=== PATIENT | male | born 1960 | race Two or more races ===

== ENCOUNTER 2019-01-17 07:44 | Outpatient (CLI) | payer OTHER | END 2019-01-17 07:47 | disposition home or self-care (01) | LOC: TOM 07:44 | DX: C34.90 Malignant neoplasm of unspecified part of unspecified bronchus or lung (principal) ==

== ENCOUNTER 2019-01-24 08:49 | Outpatient (CLI) | payer OTHER | END 2019-01-24 12:12 | disposition home or self-care (01) | LOC: NUCLEAR 08:49 | DX: C34.90 Malignant neoplasm of unspecified part of unspecified bronchus or lung (principal) | CPT/HCPCS: 78816; A9552 ==

== ENCOUNTER 2019-07-22 08:26 | Outpatient (CLI) | payer OTHER | END 2019-07-22 11:26 | disposition home or self-care (01) | LOC: NUCLEAR 08:26 | DX: C34.92 Malignant neoplasm of unspecified part of left bronchus or lung (principal) | CPT/HCPCS: 78815; A9552 ==

== ENCOUNTER 2019-11-16 11:36 | Emergency (ER) | payer OTHER ==
[~2019-11-16] VITALS: Ht 172.7 cm; Wt 108.9 kg
[2019-11-16] MEDS ORDERED: ASPIR 8181 MG (12:24)
[2019-11-16] MEDS ORDERED: LANTUS SOL100 UNIT/1 (12:25)
[2019-11-16] MEDS ORDERED: FLOVENT HFA10.6 GM (12:44)
[2019-11-16] MEDS ORDERED: PROAIR HFA8.5 GM (12:45)
[2019-11-16] MEDS ORDERED: FOLIC ACID1 MG (12:46)
[2019-11-16] MEDS ORDERED: GRALISE600 MG (12:46)
[2019-11-16] MEDS ORDERED: HYDROCHLOROTH12.5 MG (12:47)
[2019-11-16] MEDS ORDERED: GLIPIZIDE XL10 MG (12:47)
[2019-11-16] MEDS ORDERED: ATORVASTATIN CA40 MG (12:47)
[2019-11-16] MEDS ORDERED: AMLODIPINE 10MG (12:48)
[2019-11-16] MEDS ORDERED: PLAVIX75 MG (12:48)
[2019-11-16] MEDS ORDERED: MONTELUKAST SODI4 M1 (12:49)
[2019-11-16] MEDS ORDERED: TOPROL XL25 M1 (12:49)
[2019-11-16] MEDS ORDERED: ANORO ELLIPTA1 EACH (12:50)
[2019-11-16] MEDS ORDERED: JENTADUETO XR1 EACH (12:51)
[2019-11-16] MEDS ORDERED: DICLOFENAC SODI75 MG PO (12:53)
== END 2019-11-16 14:04 | disposition home or self-care (01) ==
LOC: ER 11:36
DX: M25.532 Pain in left wrist (principal)

== ENCOUNTER 2019-11-22 12:24 | Emergency (ER) | payer OTHER ==
[~2019-11-22] VITALS: Ht 172.7 cm; Wt 108.9 kg
[~2019-11-22 12:24] MED LIST: AMLODIPINE 10MG; ANORO ELLIPTA1 EACH; ASPIR 8181 MG; ATORVASTATIN CA40 MG; DICLOFENAC SODI75 MG PO; FLOVENT HFA10.6 GM; FOLIC ACID1 MG; GLIPIZIDE XL10 MG; GRALISE600 MG; HYDROCHLOROTH12.5 MG; JENTADUETO XR1 EACH; LANTUS SOL100 UNIT/1; MONTELUKAST SODI4 M1; PLAVIX75 MG; PROAIR HFA8.5 GM; TOPROL XL25 M1
[2019-11-22] MEDS ORDERED: AMLODIPINE-OLM1 EAC1 (12:51)
[2019-11-22] MEDS ORDERED: CLONAZEPAM0.25 MG (12:51)
[2019-11-22] MEDS ORDERED: COZAAR50 MG (12:53)
[2019-11-22] MEDS ORDERED: JENTADUETO 2.51 EAC2 (12:54)
[2019-11-22] MEDS ORDERED: ZITHROMAX500 MG PO (14:46)
== END 2019-11-22 14:53 | disposition home or self-care (01) ==
LOC: ER 12:24
DX: H92.02 Otalgia, left ear (principal)

== ENCOUNTER 2019-12-15 11:01 | Outpatient (CLI) | payer OTHER ==
[~2019-12-15 11:01] MED LIST changes: +AMLODIPINE-OLM1 EAC1; +CLONAZEPAM0.25 MG; +COZAAR50 MG; +JENTADUETO 2.51 EAC2; +ZITHROMAX500 MG PO
== END 2019-12-15 11:13 | disposition home or self-care (01) ==
LOC: TOM 11:01
PROVIDERS: ATTEND Internal Medicine Hematology & Oncology
DX: R68.84 Jaw pain (principal)

== ENCOUNTER 2019-12-23 12:52 | Emergency (ER) | payer OTHER ==
[~2019-12-23] VITALS: Ht 172.7 cm; Wt 108.0 kg
[2019-12-23] MEDS ORDERED: LANTUS SOL100 UNIT/1 SUBCUTANEO (14:23)
== END 2019-12-23 14:33 | disposition home or self-care (01) ==
LOC: ER 12:52
DX: E11.65 Type 2 diabetes mellitus with hyperglycemia (principal)

== ENCOUNTER → 2019-12-27 | Emergency (ER) | payer OTHER ==
[~2019-12-27] MED LIST changes: +LANTUS SOL100 UNIT/1 SUBCUTANEO
== END | disposition left against medical advice (07) ==
LOC: ER 12:17
DX: Z53.20 Procedure and treatment not carried out because of patient's decision for unspecified reasons (principal)

== ENCOUNTER → 2020-01-26 | Outpatient (CLI) | payer OTHER | END | disposition home or self-care (01) | LOC: OFIC 805 01-04 13:30 | PROVIDERS: ATTEND Otolaryngology | DX: H92.02 Otalgia, left ear (principal); J30.89 Other allergic rhinitis; H60.552 Acute reactive otitis externa, left ear ==

== ENCOUNTER 2020-07-25 08:35 | Inpatient (IN) | payer OTHER ==
[~2020-07-25] VITALS: Ht 172.7 cm; Wt 136.1 kg
--- NOTE | 2020-07-25 08:54 | NUR ---
SE RECIBE PACIENTE ALERTA, ORIENTADO. PACIENTE REFIERE LLEVAR DOS SEMANAS SIN PODER COMER ZHEN YA QUE NO TIENE APETITO. PACIENTE REFIERE DESBALANCE, MAREOS, CON FALTA DE APETITO Y DOLOR LEVE EN CUERPO. 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
--- NOTE | 2020-07-25 10:10 | NUR ---
PACIENTE ALERTA Y ORIENTADO EN BOB NATALIO ESFERAS, CONECTADO A MONITOR CARDIACO Y OXIMETRIA DE PULSO, ES ORIENTADO SOBRE ORDENES MEDICAS, REFIERE ENTENDER. SE COLECTAN MUESTRAS DE LABORATORIO, SE CANALIZA VENA, SE ADMINISTRA PEPCID 20 MG IV Y 500 ML DE 0.9% NSS FULL DRIP. PENDIENTE PLACA DE PECHO PORTABLE, PENDIENTE MUESTRA DE ORINA, PTE TIENE ENVASE.
--- NOTE | 2020-07-25 13:00 | NUR ---
PACIENTE DESORIENTADO EN TIEMPO Y LUGAR, COMIENZA A TORNARSE AGRESIVO, DESCONECTARSE DE MONITOR CARDIACO Y OXIMETRIA Y EMPEZAR A RETIRARSE SALINE LOCK. RENTA ORIENTA A PACIENTE SOBRE GOMEZ CONDICION Y QUE NO DEBE IRSE EN ESPERA DE EVALUACION DE MEDICINA INTERNA, PTE NO COOPERA Y NO ESTA EN CONDICIONES DE ENTENDER Y RAZONAR. RENTA ORDENA RESTRINGIR PACIENTE Y ADMINISTRAR ATIVAN 2 MG IV STAT. SE EJECUTAN ORDENES Y SE ADMINISTRA OXIGENO A 3 LT POR CANULA NASAL.
--- NOTE | 2020-07-25 16:18 | NUR ---
SE RECIBE PTE MASCUOLINO ALERTA Y DESORIENTADO,CONECTADO A MONITOR CARDIACO NIKHIL Y OXIMETRIA CONTINUA,SE AMNTIEME CON IVF PATENTE AREA CHITO DE EDEMA Y ENROJECIMIENTO,SE MANTIENE CON C/N A 3LTRS,CON RESTRICCIONES X4,PTE NO ES RECEPTIVO CON EL TRATAMIENTO DEBIDO A GOMEZ DESORIENTACION,MILLY NO SIGUE COMANDOS,POR MOENTOS SE TORNA AGRESIVO,SE REALIZAN S/V,SE MANTIENE A PTE EN VIGILANCIA NIKHIL POR CAMBIOS.
== END 2020-07-27 15:09 | disposition expired | DRG 641 ==
LOC: ER 08:35 → MEDI 21:46
PROVIDERS: ADMIT Internal Medicine; ATTEND Internal Medicine
PROC: 0BH17EZ Insertion of Endotracheal Airway into Trachea, Via Natural or Artificial Opening (ICD-10-PCS; principal; 2020-07-27)
PROC: 5A1935Z Respiratory Ventilation, Less than 24 Consecutive Hours (ICD-10-PCS; 2020-07-27)
PROC: 4A12X4Z Monitoring of Cardiac Electrical Activity, External Approach (ICD-10-PCS; 2020-07-27)
DX: E87.1 Hypo-osmolality and hyponatremia (principal); C79.51 Secondary malignant neoplasm of bone; N17.8 Other acute kidney failure; E86.0 Dehydration; I46.8 Cardiac arrest due to other underlying condition; E87.5 Hyperkalemia; Z20.822 Contact with and (suspected) exposure to COVID-19